=== PATIENT | male | born 1950 | race Caucasian/White ===

== ENCOUNTER 2017-06-10 16:26 | Emergency (ER) | payer OTHER ==
[2017-06-10] MEDS: NS 0.9% 1000 ML* 2,000 ML IV ONE ×2 (16:30→18:44)
[2017-06-10] MEDS ORDERED: Dextrose 50% Syringe 50 ML* 25 GM/50 ML SYRINGE IV PUSH ONE (16:31)
[2017-06-10 16:45] LABS: Hematocrit 36 % (42-52); Hemoglobin 11.6 g/dl (14.0-18.0); Mean Corpuscular HGB Conc 33 g/dl (31-36); Mean Corpuscular Hemoglobin 29 pg (27-31); Mean Corpuscular Volume 91 fL (80-94); Mean Platelet Volume 9 um3 (7.4-10.4); Red Blood Count 3.95 10^6/ul (4.0-5.4); Red Cell Distribution Width 15 % (10.5-15)
[2017-06-10] MEDS ORDERED: DOPamine 200 MG/250 ML IVPREM* 200 MG/250 ML ML IV ONE (16:58)
[2017-06-10 17:00] LABS: Albumin 3.6 g/dL (3.2-5.2); BUN/Creatinine Ratio 24.6 (8-20); Calcium 8.7 mg/dL (8.6-10.3); EGFR African American 82.2 (>60); EGFR Non-African American 63.9 (>60); Globulin 2.8 g/dL (2-4); Potassium 3.9 mmol/L (3.5-5.0); Total Bilirubin 0.5 mg/dL (0.2-1.0); Total Protein 6.4 g/dL (6.4-8.9)
[2017-06-10 17:02] LABS: Troponin I 0.01 ng/mL (<0.04)
[2017-06-10] MEDS ORDERED: Midazolam IV for DRIP* 10 ML ONE (17:12)
--- NOTE | 2017-06-10 17:16 | RAD ---
Indication: Altered mental status. Comparison: No relevant prior exams available on the [facility] for comparison. Technique: Noncontrast CT vertex of skull through foramen magnum. Report: The sulci, ventricles, and basal cisterns are normal for age. Barrientos matter white matter differentiation is preserved without evidence for edema. No intra or extra axial hemorrhage, mass, or fluid collection detected. Unremarkable visualized orbital contents. Unremarkable calvarium and skull base. Unremarkable scalp. The visualized paranasal sinuses and mastoid air spaces are clear. IMPRESSION: Negative for intracranial hemorrhage or CT stigmata of acute or subacute ischemic stroke. Negative unenhanced head CT for age. Results of the head CT and chest, abdomen and pelvis CT of the same date documenting a Supa classification type A aortic dissection new compared with the June 06, [address] Boucher 06/10/2017 5:12 PM EDT
[2017-06-10] MEDS ORDERED: DOPamine 200 MG/250 ML IVPREM* 200 MG in PREMIX* 0 ML IV ONE (17:18)
[2017-06-10] MEDS ORDERED: Etomidate* 2 MG/ML 10 ML VIAL IV ONE (17:18)
[2017-06-10] MEDS ORDERED: Succinylcholine* 20 MG/ML 10 ML VIAL IV ONE (17:18)
--- NOTE | 2017-06-10 17:29 | RAD ---
INDICATION: Hypotensive. Chest pain. Assess for ruptured thoracic aortic aneurysm. Known aneurysm. Carcinoid syndrome. COMPARISON: June 06, 2017 CT. TECHNIQUE: Multidetector CT images were obtained from the lung apices to the ischial tuberosities with 100 mL Omnipaque 300 IV contrast. Aortic angiogram protocol. No oral contrast administered. REPORT: Mild dependent basilar atelectasis. Negative for pleural effusion or pneumothorax. Negative for thoracic lymphadenopathy. Negative for cardiomegaly or pericardial effusion. Negative for mediastinal hematoma. Aortic dissection new compared with the June 06, 2017 CT exam involves the descending and descending thoracic aorta as well as the abdominal aorta. The sinotubular junction measures 4.3 cm diameter. The descending segment measures 5.0 cm at the level of the main pulmonary artery. The proximal and distal arch measure 3.9 and 3.0 cm respectively. The distal descending segment measures 2.4 cm diameter. Approximate 90% compression of the true lumen by the false lumen at the ascending segment. Negative for aneurysm of the abdominal aorta or common iliac arteries. Extension of the dissection into the RIGHT brachiocephalic, LEFT common carotid, and LEFT subclavian arteries with approximate 90% stenosis of the LEFT common carotid artery resulting. The true lumen supplies the celiac axis, superior mesenteric artery, and bilateral renal arteries as well as the inferior mesenteric artery and the RIGHT common iliac artery. The LEFT common iliac artery is supplied by the false lumen. Assessment of the abdominal pelvic viscera is limited due to arterial phase of contrast. Previously documented focal hepatic lesion at the inferior RIGHT hepatic lobe likely representing a carcinoid lesion given provided history is poorly visualized on the current exam due to phase of contrast enhancement. Unremarkable gallbladder, pancreas, spleen. Small hiatal hernia. Unremarkable small bowel loops and retrocecal/infra cecal appendix. No suspicious abnormality of the colon. Negative for ascites, free air, or significant hernias. Normal adrenal glands. Symmetric cortical phase enhancement of the kidneys. Few renal cortical cysts. Negative for hydronephrosis. Partially distended urinary bladder without gross abnormality. Negative for lymphadenopathy. Physiologic distention of the IVC. Negative for suspicious focal osseous lesions. Bilateral L5 spondylolysis with grade 1 L5-S1 anterolisthesis. IMPRESSION: 1. [place] type A aortic dissection as described without evidence for acute aortic rupture. Significant resulting stenosis of the LEFT common carotid artery. 2. Extension of the dissection into the RIGHT brachiocephalic, LEFT common carotid, and LEFT subclavian arteries. Resulting stenosis is most severe at the LEFT common carotid artery where it is approximate 90%. With approximate 90%. The true lumen supplies the celiac axis, superior mesenteric artery, and bilateral renal arteries as well as the inferior mesenteric artery and the RIGHT common iliac artery. The LEFT common iliac artery is supplied by the false lumen. Results discussed with Dr. Sims 06/10/2017 5:21 PM EDT
[2017-06-10] MEDS ORDERED: Rocuronium* 10 MG/ML VIAL IV ONE (17:31)
--- NOTE | 2017-06-10 17:36 | ED ---
Demetria Dhillon Edward, scribed for Tariq Sims MD on 06/10/17 at 1645 . 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 The patient was stepping into a pool when he felt "something shifted in his windpipe (upper chest) like a blow". The patient was not dizzy immediately following the "chest shift". A few minutes later the pt started c/o trouble walking, vision deficiency, DUNNE, pale, slurred speech, confusion, drooped over, per the patient's daughter. Pt also c/o mild difficulty breathing during the episode. The patient still c/o vision deficiencies in the ED. PMHx aneurym, no prior stroke history, no HTN, positive for liver CA, feet problems. FHx aneurysm (mom and sister). Information obtained from EMS and the patient's daughter. No drugs or EtOH today. No PMHx DM. Denies trauma today. Code tom called at 16:12. Pt's BP dropped in the ED and an ABC alert was called at 17:03. - History of Current Complaint Stated Complaint: POSSIBLE STROKE Time Seen by Provider: 06/10/17 16:30 Hx Obtained From: Patient Onset/Duration: Sudden Onset, Started minutes ago Character: Weak, Dizzy, Motor Weakness - Trouble walking, Impaired Speech, Confusion, Visual Changes, Other: - "Something shifted in his chest " Associated Signs and Symptoms: Positive: Unsteady Gait, Visual Changes, Headache , Confusion, Weakness - Drooped over, Impaired Speech, Chest Pain - "chest shift ", Shortness of Breath - mild - Allergy/Home Medications Allergies/Adverse Reactions: Allergies Allergy/AdvReac Type Severity Reaction Status Date / Time No Known Allergies Allergy Verified 06/06/17 08:38 PMH/Surg Hx/FS Hx/Imm Hx Previously Healthy: No Endocrine/Hematology History: Denies: Hx Diabetes, Hx Systemic Lupus Erythematosus Cardiovascular History: Reports: Hx Aneurysm Denies: Hx Congestive Heart Failure, Hx Hypertension GI History: Reports: Other GI Disorders - Hx carcinoid tumor with colon resection History: Denies: Hx Dialysis, Hx Renal Disease Musculoskeletal History: Denies: Hx Rheumatoid Arthritis - Cancer History Cancer Type, 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 hernia surgery Infectious Disease History: Denies: Traveled Outside the [place] in Last 30 Days - Family History Known Family History: Positive: Cardiac Disease - Aneurysm (mother) - Social History Alcohol Use: None Substance Use Type: Reports: None Smoking Status (MU): Unknown if Ever Smoked Review of Systems Negative: Fever, Chills Negative: Erythema Negative: Sore Throat Positive: Chest Pain - "something shifted in his chest" Positive: Shortness Of Breath - Mild. Negative: Cough Negative: Abdominal Pain, Vomiting, Nausea Negative: dysuria, hematuria Negative: Myalgia, Edema Negative: Rash Neurological: Other - vision deficiency, trouble walking, drooped over, pale Positive: Headache, Slurred Speech All Other Systems Reviewed And Are Negative: Yes Physical Exam - Summary Physical Exam Summary: Constitutional: Well-developed, Well-nourished, Alert. (-) Distressed Skin: Warm, Dry HENT: Eyes: Conjunctiva normal Neck: Musculoskeletal ROM normal neck. (-) JVD, (-) Stridor, (-) Tracheal deviation Cardio: Rhythm regular, rate normal, Heart sounds normal; Intact distal pulses; The pedal pulses are 2+ and symmetric. Radial pulses are 2+ and symmetric. (-) Murmur Pulmonary/Chest wall: Effort normal. (-) Respiratory distress, (-) Wheezes, (-) Rales Abd: Soft. (-) Tenderness, ~(-) Distension, (-) Guarding, (-) Rebound Musculoskeletal: (-) Edema Lymph: (-) Cervical adenopathy Neuro: Alert, Oriented x3, Strength normal, Cranial nerves II-XII are grossly intact. (-) Dysmetria, (-) Nystagmus, (-) Ataxia by finger to nose testing, (-) Sensory deficit. Psych: Mood and affect Normal Triage Information Reviewed: Yes Vital Signs Reviewed: Yes Diagnostics - Laboratory Lab Results: Lab Results 06/10/17 06/10/17 06/10/17 Range/Units 16:35 16:35 16:35 WBC 7.0 (3.5-10.8) 10^3/ul RBC 3.95 L (4.0-5.4) 10^6/ul Hgb 11.6 L (14.0-18.0) g/dl Hct 36 L (42-52) % MCV 91 (80-94) fL MCH 29 (27-31) pg MCHC 33 (31-36) g/dl RDW 15 (10.5-15) % Plt Count 146 L (150-450) 10^3/ul MPV 9 (7.4-10.4) um3 Neut % (Auto) 57.6 (38-83) % Lymph % (Auto) 27.1 (25-47) % Leslie % (Auto) 9.3 H (1-9) % Eos % (Auto) 5.5 (0-6) % Baso % (Auto) 0.5 (0-2) % Absolute Neuts (auto) 4.0 (1.5-7.7) 10^3/ul Absolute Lymphs (auto) 1.9 (1.0-4.8) 10^3/ul Absolute Monos (auto) 0.6 (0-0.8) 10^3/ul Absolute Eos (auto) 0.4 (0-0.6) 10^3/ul Absolute Basos (auto) 0 (0-0.2) 10^3/ul Absolute Nucleated RBC 0 10^3/ul Nucleated RBC % 0 Sodium 138 (133-145) mmol/L Potassium 3.9 (3.5-5.0) mmol/L Chloride 108 (101-111) mmol/L Carbon Dioxide 26 (22-32) mmol/L Anion Gap 4 (2-11) mmol/L BUN 28 H (6-24) mg/dL Creatinine 1.14 (0.67-1.17) mg/dL Est GFR ( Amer) 82.2 (>60) Est GFR (Non-Af Amer) 63.9 (>60) BUN/Creatinine Ratio 24.6 H (8-20) Glucose 98 (70-100) mg/dL Lactic Acid 1.0 (0.5-2.0) mmol/L Calcium 8.7 (8.6-10.3) mg/dL Total Bilirubin 0.50 (0.2-1.0) mg/dL AST 29 (13-39) U/L ALT 31 (7-52) U/L Alkaline Phosphatase 51 (34-104) U/L Troponin I 0.01 (<0.04) ng/mL Total Protein 6.4 (6.4-8.9) g/dL Albumin 3.6 (3.2-5.2) g/dL Globulin 2.8 (2-4) g/dL Albumin/Globulin Ratio 1.3 (1-3) Blood Type Antibody Screen Crossmatch 06/10/17 Range/Units 16:35 WBC (3.5-10.8) 10^3/ul RBC (4.0-5.4) 10^6/ul Hgb (14.0-18.0) g/dl Hct (42-52) % MCV (80-94) fL MCH (27-31) pg MCHC (31-36) g/dl RDW (10.5-15) % Plt Count (150-450) 10^3/ul MPV (7.4-10.4) um3 Neut % (Auto) (38-83) % Lymph % (Auto) (25-47) % Leslie % (Auto) (1-9) % Eos % (Auto) (0-6) % Baso % (Auto) (0-2) % Absolute Neuts (auto) (1.5-7.7) 10^3/ul Absolute Lymphs (auto) (1.0-4.8) 10^3/ul Absolute Monos (auto) (0-0.8) 10^3/ul Absolute Eos (auto) (0-0.6) 10^3/ul Absolute Basos (auto) (0-0.2) 10^3/ul Absolute Nucleated RBC 10^3/ul Nucleated RBC % Sodium (133-145) mmol/L Potassium (3.5-5.0) mmol/L Chloride (101-111) mmol/L Carbon Dioxide (22-32) mmol/L Anion Gap (2-11) mmol/L BUN (6-24) mg/dL Creatinine (0.67-1.17) mg/dL Est GFR ( Amer) (>60) Est GFR (Non-Af Amer) (>60) BUN/Creatinine Ratio (8-20) Glucose (70-100) mg/dL Lactic Acid (0.5-2.0) mmol/L Calcium (8.6-10.3) mg/dL Total Bilirubin (0.2-1.0) mg/dL AST (13-39) U/L ALT (7-52) U/L Alkaline Phosphatase (34-104) U/L Troponin I (<0.04) ng/mL Total Protein (6.4-8.9) g/dL Albumin (3.2-5.2) g/dL Globulin (2-4) g/dL Albumin/Globulin Ratio (1-3) Blood Type A Negative Antibody Screen Negative Crossmatch See Detail Result Diagrams: 06/10/17 16:35 06/10/17 16:35 Lab Statement: Any lab studies that have been ordered have been reviewed, and results considered in the medical decision making process. - Radiology CXR Xray Interpretation: No Acute Changes - CXR shows tube is in place Radiology Interpretation Completed By: Radiologist - CT BRAIN CT CT Interpretation: No Acute Changes - Negative for intracranial hemorrhage or CT stigmata of acute or subacute ischemic stroke. Negative unenhanced head CT for age. CT Interpretation Completed By: Radiologist CHEST/ABD CTA CT Interpretation: Positive (See Comments) - Results of the head CT and chest, abdomen and pelvis CT of the same date documenting a [place] classification type A aortic dissection new compared with the June 06, [address] 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 The patient was stepping into a pool when he felt "something shifted in his windpipe (upper chest) like a blow". The patient was not dizzy immediately following the "chest shift". A few minutes later the pt started c/o trouble walking, vision deficiency, DUNNE, pale, slurred speech, confusion, drooped over, per the patient's daughter. Pt also c/o mild difficulty breathing during the episode. The patient still c/o vision deficiencies in the ED. PMHx aneurym, no prior stroke history, no HTN, positive for liver CA, feet problems. FHx aneurysm (mom and sister). Information obtained from EMS and the patient's daughter. No drugs or EtOH today. No PMHx DM. Denies trauma today. Code tom called at 16:12. EKG at 16:37 shows SINUS BRADYCARDIA @ 69 bpm. Called the cardiothoracic surgeon at [facility], who did not accept the patient for transfer due to no chemical applicator backup at their facility. I informed the surgeon that they were the closest facility. Pt's BP dropped in the ED and an ABC alert was called at 17:03. Results of the head CT and chest, abdomen and pelvis CT of the same date documenting a Supa classification type A aortic dissection new compared with the June 06, [address] Boucher 06/10/2017 5:12 PM EDT. At 17:15, the patient was not immediately accepted by [facility] to transfer. We called [facility] at 17:20. While discussing with [facility], at 17:24, [place] called back and the pt was accepted by [facility] to transfer by Dr. Braden Rodriguez ( Cardiothoracic surgery). Family is aware of poor prognosis and real risk of during transport. - Diagnoses Provider Diagnoses: Thoracic aortic dissection, Hypovolemic shock - Critical Care Time Critical Care Time: 30-74 min - 60 minutes Discharge - Discharge Plan Condition: Critical Disposition: TRANS HIGHER LVL OF CARE FAC Referrals: Tin Naranjo MD [Primary Care Provider] - The documentation as recorded by the Demetria mcfarland Edward accurately reflects the service I personally performed and the decisions made by me, Tariq Sims MD.
--- NOTE | 2017-06-10 17:39 | RAD ---
Indication: Possible stroke. Aortic dissection. Post intubation Comparison: CT of the same date. Technique: Supine AP 1715 hours Report: Endotracheal tube tip is approximate 7.5 cm from the [place] and could be advanced approximate 3 cm. Cutaneous cardiac pacer leads noted. Hazy opacity throughout the LEFT lung new compared with the CT of the same date is most consistent with mild atelectasis. Negative for cardiomegaly. Mildly prominent and tortuous contour of the thoracic aorta corresponding with aneurysm of the ascending aorta on CT. Unremarkable central pulmonary vasculature. IMPRESSION: The endotracheal tube could be advanced approximate 3 cm. Partial atelectasis of the LEFT lung.
[2017-06-10 19:09] VITALS: BP 87/70
== END 2017-06-10 17:50 | disposition short-term general hospital (02) ==
LOC: ED 16:26
DX: I71.01 Dissection of thoracic aorta (principal); R57.1 Hypovolemic shock; R06.02 Shortness of breath; R51 Headache; R47.81 Slurred speech; R07.9 Chest pain, unspecified; R41.0 Disorientation, unspecified
CPT/HCPCS: 36415; 70450; 71010; 71275; 74174; 80053; 83605; 84484; 85025; 86850; 86900; 86901; 86922; 92950; 93005; 99285; J0330; J1265; J2250; P9016; P9040; Q9967